=== PATIENT | male | born 1995 | race Caucasian/White ===

== ENCOUNTER 2022-05-04 16:48 | Outpatient (CLI) | payer OTHER | END 2022-05-04 16:49 | disposition home or self-care (01) | LOC: LABBT 16:48 | PROVIDERS: ATTEND Student in an Organized Health Care Education/Training Program | DX: J34.89 Other specified disorders of nose and nasal sinuses (principal); R22.0 Localized swelling, mass and lump, head; D23.30 Other benign neoplasm of skin of unspecified part of face; Z20.822 Contact with and (suspected) exposure to COVID-19 | CPT/HCPCS: 87811 ==

== ENCOUNTER 2022-05-05 07:54 | Day surgery (SDC) | payer OTHER ==
[2022-05-01 14:41] VITALS: BMI 25.8
[2022-05-05] MEDS ORDERED: Lidocaine 1% w/Epinephrine 1:200K 30 ML VIAL ONE (09:22)
[2022-05-05] MEDS ORDERED: Bacitracin Zinc Ointment 30 gm TUBE ONE (09:23)
[2022-05-05] MEDS ORDERED: Dexmedetomidine 200 MCG/2 ML VIAL ONE (09:26)
[2022-05-05] MEDS ORDERED: fentaNYL Citrate/PF 100 MCG/2 ML SYRINGE ONE (09:26)
[2022-05-05] MEDS ORDERED: Sodium Chloride 0.9% 100 ML ONE (10:20)
[2022-05-05] MEDS ORDERED: CEFAZOLIN 2 GM VIAL ONE (10:20)
[2022-05-05] MEDS ORDERED: Ondansetron PF 4 MG/2 ML Vial ONE (10:31)
[2022-05-05] MEDS ORDERED: Dexamethasone 20 MG/5 ML VIAL ONE (10:31)
[2022-05-05] MEDS ORDERED: PROPOFOL 200 MG/20 ML VIAL ONE (10:31)
[2022-05-05] MEDS ORDERED: Lidocaine 1% PF 5 ML VIAL ONE (10:31)
[2022-05-05] MEDS ORDERED: ePHEDrine 50 MG/ML VIAL ONE (10:31)
[2022-05-05] MEDS ORDERED: Fentanyl 100 MCG/2 ML VIAL ONE (12:22)
[2022-05-05] MEDS ORDERED: HYDROcodone/Acetaminophen 5/325 mg Tablet ONE (13:20)
== END 2022-05-05 14:00 | disposition home or self-care (01) ==
LOC: SDC 07:54
PROVIDERS: ATTEND Student in an Organized Health Care Education/Training Program
PROC: 0KB10ZZ Excision of Facial Muscle, Open Approach (ICD-10-PCS; principal; 2022-05-05)
DX: L72.0 Epidermal cyst (principal); H81.11 Benign paroxysmal vertigo, right ear; Z79.899 Other long term (current) drug therapy
CPT/HCPCS: 88304; C1713; J0690; J1100; J2405; J2704; J3010; J3490